=== PATIENT | female | born 1980 | race Caucasian/White ===

== ENCOUNTER 2017-12-21 16:41 | Inpatient (IN) | payer MEDICAID, OTHER ==
[~2017-12-21 16:41] MED LIST: EPHEDrine SULFATE 50 MG/5 ML SYG
[2017-12-21] MEDS: LACTATED RINGER'S 1,000 ML IV ×3 (18:18→21:00)
[2017-12-21] MEDS ORDERED: CARBOPROST 250 MCG INJ IM ×2 (18:30→23:00)
[2017-12-21] MEDS ORDERED: CEFAZOLIN 2 GM/50 ML (PMX) 50 ML IV (18:30)
[2017-12-21] MEDS ORDERED: METHYLERGONOVINE 0.2 MG INJ IM ×2 (18:30→23:00)
[2017-12-21] MEDS ORDERED: MISOPROSTOL 200 MCG TAB PR ×2 (18:30→23:00)
[2017-12-21] MEDS ORDERED: OXYTOCIN 30 UNITS/LR 500 ML IV ×3 (18:30→23:00)
[2017-12-21] MEDS ORDERED: TERBUTALINE 1 ML (19:17)
[2017-12-21] MEDS: TERBUTALINE 1 MG/ML INJ SC (19:23)
[2017-12-21 19:24] LABS: ADD MAN DIFF? NO
[2017-12-21 19:27] LABS: BASOPHILS % 0.2 % (0.0-2.0); EOSINOPHILS % 0.3 % (0.0-7.0); HEMATOCRIT 30.6 % (37.0-47.0); HEMOGLOBIN 9.8 g/dl (12.0-16.0); LYMPHOCYTES # 1.3 10^3/ul (0.8-2.9); MEAN CORPUSCULAR HEMOGLOBIN 22.9 pg (29.0-33.0); MEAN CORPUSCULAR VOLUME 71.5 fl (82.0-101.0); MEAN PLATELET VOLUME 10.5 fl (7.4-10.4); NEUTROPHIL # 9.6 10^3/ul (1.6-7.5); NEUTROPHILS % 79.9 % (39.0-77.0); PLATELET COUNT 330 10^3/UL (140-415); RED BLOOD COUNT 4.28 10^6/ul (4.20-5.40); RED CELL DISTRIBUTION WIDTH 18.7 % (11.5-14.5)
[2017-12-21 19:47] LABS: INR 0.87; PROTIME 11.9 Sec (11.9-14.9); PT RATIO 0.9
[2017-12-21 19:48] LABS: PARTIAL THROMBOPLASTIN TIME 27.2 Sec (23.0-35.0)
[2017-12-21 20:16] LABS: HEPATITIS B SURFACE ANTIGEN NEGATIVE (NEGATIVE)
[2017-12-21] MEDS ORDERED: MEPERIDINE 25 MG INJ IV (21:00)
[2017-12-21] MEDS ORDERED: PROCHLORPERAZINE 10 MG INJ IV (21:00)
[2017-12-21] MEDS ORDERED: KETOROLAC 30 MG INJ IV (21:00)
[2017-12-21] MEDS ORDERED: FENTAnyl 50 MCG/ML VIAL IV ×3 (21:00)
[2017-12-21] MEDS ORDERED: HYDROmorphONE 1 MG/5 ML IV SYRINGE IV ×3 (21:00)
[2017-12-21] MEDS ORDERED: DIPHENHYDRAMINE 50 MG INJ IV (21:00)
[2017-12-21] MEDS ORDERED: ONDANSETRON 4 MG INJ IV (21:00)
[2017-12-21] MEDS: CITRIC ACID/NA CITRATE 30 ML CUP PO ×2 (21:06→21:10)
[2017-12-21] MEDS: METOCLOPRAMIDE 10 MG INJ IV ×2 (21:06→21:10)
[2017-12-21] MEDS: FAMOTIDINE 20 MG INJ IV ×2 (21:06→21:10)
[2017-12-21] MEDS ORDERED: morphine SULFATE/PF (10 MG/10 ML) INJ (21:25)
[2017-12-21] MEDS ORDERED: BUPIVACAINE 0.75%/DEXT (SPINAL) 2 ML INJ (21:26)
[2017-12-21] MEDS ORDERED: PHENYLephrine (100 MCG/ML) 5ML SYG ×2 (21:36→21:54)
[2017-12-21] MEDS ORDERED: MIDAZOLAM 1 MG/ML 2 ML INJ ×2 (21:58→22:20)
[2017-12-21] MEDS ORDERED: FENTAnyl 50 MCG/ML VIAL ×2 (22:02→22:10)
[2017-12-21] MEDS ORDERED: METHYLERGONOVINE 0.2 MG TAB PO (23:00)
[2017-12-21] MEDS: OXYTOCIN 30 UNITS/LR 500 ML IV (23:03)
[2017-12-22] MEDS ORDERED: ZOLPIDEM 5 MG TAB PO
[2017-12-22] MEDS ORDERED: DIPHENHYDRAMINE 50 MG INJ IV
[2017-12-22] MEDS ORDERED: ONDANSETRON 4 MG INJ IV
[2017-12-22] MEDS ORDERED: HYDROmorphONE 0.5 MG/0.5 ML SYG IV ×2
[2017-12-22] MEDS ORDERED: NALOXONE (0.4 MG/ML) INJ IV
[2017-12-22] MEDS: KETOROLAC 30 MG INJ IV ×3 (01:02→16:56)
[2017-12-22] MEDS: OXYTOCIN 30 UNITS/LR 500 ML IV (02:35)
[2017-12-22] MEDS: IBUPROFEN 600 MG TAB PO ×4 (06:00→18:00)
[2017-12-22] MEDS: LACTATED RINGER'S 1,000 ML IV ×4 (07:00→23:00)
[2017-12-22 07:42] LABS: ADD MAN DIFF? NO
[2017-12-22 07:51] LABS: WHITE BLOOD COUNT 12.3 10^3/ul (4.8-10.8)
[2017-12-22 07:51] LABS: BASOPHILS % 0.2 % (0.0-2.0); EOSINOPHILS % 0.2 % (0.0-7.0); HEMATOCRIT 22.1 % (37.0-47.0); HEMOGLOBIN 7.1 g/dl (12.0-16.0); LYMPHOCYTES # 1.8 10^3/ul (0.8-2.9); LYMPHOCYTES % 14.4 % (15.0-51.0); MEAN CORPUSCULAR HEMOGLOBIN 23.4 pg (29.0-33.0); MEAN CORPUSCULAR HGB CONC 32.1 g/dl (32.0-37.0); MEAN CORPUSCULAR VOLUME 72.7 fl (82.0-101.0); MEAN PLATELET VOLUME 9.8 fl (7.4-10.4); MONOCYTE # 1.1 10^3/ul (0.3-0.9); MONOCYTES % 9.1 % (0.0-11.0); NEUTROPHIL # 9.3 10^3/ul (1.6-7.5); NEUTROPHILS % 75.5 % (39.0-77.0); PLATELET COUNT 219 10^3/UL (140-415); RED BLOOD COUNT 3.04 10^6/ul (4.20-5.40); RED CELL DISTRIBUTION WIDTH 18.7 % (11.5-14.5)
[2017-12-22 15:03] LABS: RAPID PLASMA REAGIN NONREACTIVE (NR)
[2017-12-22] MEDS: HYDROCODONE/APAP (5/325) TAB PO (22:16)
[2017-12-23] MEDS: IBUPROFEN 600 MG TAB PO ×4 (00:20→17:34)
[2017-12-23] MEDS: LACTATED RINGER'S 1,000 ML IV ×3 (07:00→23:00)
[2017-12-23] MEDS: NA PHOSPHATE/BIPHOS 133 ML ENEMA PR (10:30)
[2017-12-23 12:11] LABS: AMPHETAMINE/METHAMPHETAMINE Negative (NEGATIVE); BARBITURATES Negative (NEGATIVE); BENZODIAZEPINES Negative (NEGATIVE); CANNABINOIDS Negative (NEGATIVE); COCAINE Negative (NEGATIVE); OPIATES Negative (NEGATIVE)
[2017-12-23] MEDS: LANOLIN 7 GM TUBE TOP (17:33)
[2017-12-23] MEDS: HYDROCODONE/APAP (5/325) TAB PO (22:03)
[2017-12-24] MEDS: IBUPROFEN 600 MG TAB PO ×3 (00:39→12:21)
[2017-12-24] MEDS: LACTATED RINGER'S 1,000 ML IV ×2 (07:00→15:00)
[2017-12-24] MEDS: DIPHTH/TET/ACEL PERTUSS (ADULT) 0.5 ML VIAL IM* (09:00)
== END 2017-12-24 18:25 | disposition home or self-care (01) | DRG 787 ==
LOC: OBT 16:41 → L-D 23:59 → PP1 12-22 01:45 → L-D 16:44 → OBT 17:45 → L-D 17:45
PROVIDERS: Obstetrics & Gynecology
PROC: 10D00Z1 Extraction of Products of Conception, Low, Open Approach (ICD-10-PCS; principal; 2017-12-21)
DX: O34.211 Maternal care for low transverse scar from previous cesarean delivery (principal); O72.1 Other immediate postpartum hemorrhage; O90.81 Anemia of the puerperium; D62 Acute posthemorrhagic anemia; Z3A.37 37 weeks gestation of pregnancy; Z37.0 Single live birth
CPT/HCPCS: 80307; 85025; 85610; 85730; 86592; 86850; 86900; 86901; 87340; 90715; 99464